=== PATIENT | female | born 1985 | race Caucasian/White ===

== ENCOUNTER 2017-03-01 15:30 | Emergency (ER) | payer SELFPAY ==
[2017-03-01 15:51] VITALS: BP 116/74; BMI 23.6
[2017-03-01] MEDS ORDERED: TORADOL 60 MG VIAL IM ONE (17:41)
--- NOTE | 2017-03-01 17:42 | DR.GENAD ---
HPI - PCP Primary Care Physician: stacie - HPI Comment HPI Comment: HEADACHE WORSE TODAY. NO FEVER. PATIENT HAVE HISTORY OF MIGRAINE HEADCHE. THIS HEAADACHE IS WORSE EVER. SLIGHT POST NASAL DRIP TODAY. NO TRAUMA. - Complaint/Symptoms Chief Complaint Doctors Comments: HEADACHE, PAIN RIGHT EAR AND RT JAW AND RIGHT SIDED WEAKNESS TIMES ONE DAY. Chief Complaint:: right side ear and jaw pain, right sided weakness, headache - Nurses notes reviewed Nurses Notes Review: Yes - Source History Provided: Patient - Mode of Arrival Mode of Arrival: Ambulatory - Timing Onset of Chief Complaint: 02/28/17 Came on: Suddenly - Duration Duration: Constant - Severity Severity: Moderate PMH - PMH Past Medical History: No Past Surgical History: Yes Surgical History: Appendectomy, - Family History History of Family Medical Conditions: No - Social History Does patient currently use any type of tobacco product: Yes Have you used tobacco products in the last 12 months: Yes Type of Tobacco Use: Cigarettes Does any household member use tobacco: No Alcohol Use: None Do you use any recreational Drugs:: No Lives With: Family Lives Where: Home - infectious screening In the last 2 months have you had wt loss of >10#?: NO Have you had fever, night sweats or hemotysis?: No Have you traveled outside the country in the last 6 months?: No Isolation: Standard ROS - Review of Systems Constitutional: Weakness (RT SIDED.) Eyes: No Symptoms Reported. negative: Eye Pain, Discharge ENTM: Ear Pain (RT), Nose Discharge. negative: Ear Discharge, Hearing Loss, Nose Pain Respiratoy: No Symptoms Reported. negative: Productive Cough, Non-Productive Cough, Short of Breath, Wheezing, Hemoptysis Cardiovascular: No Symptoms Reported. negative: Chest Pain Gastrointestinal/Abdominal: No Symptoms Reported. negative: Abdominal Pain, Diarrhea, Nausea, Vomiting Genitourinary: No Symptoms Reported. negative: Dysuria, Frequency, Hematuria Neurological: Headache, Weakness Musculoskeletal: Joint Pain, Muscle Pain Integumentary: No Symptoms Reported Hematologic/Lymphatic: No Symptoms Reported Endocrine: No Symptoms Reported All Other Systems: Reviewed and Negative PE - Vital Signs Vitals: Temperature 98.9 F Pulse Rate 85 Respiratory Rate 16 Blood Pressure 116/74 O2 Sat by Pulse Oximetry 98 - General Limitations: No Limitations General Appearance: Alert - Head Head Exam: Normal Inspection - Eyes Eye exam: Normal Appearance - ENT ENT Exam: Normal External Ear Exam External Ear Exam: Normal External Inspection TM/Canal Exam: Bilateral Normal Nose Exam: Normal Nose Exam Mouth Exam: Normal Inspection Throat Exam: Normal Inspection, Tonsillar Erythema - Neck Neck Exam: Normal Inspection - Chest Chest Inspection: Symmetric Chest Wall Rise - Respiratory Respiratory Exam: Normal Lung Sounds Bilat Respiratory Exam: Bilateral Clear to Auscultation - Cardiovascular Cardiovascular Exam: Regular Rate, Normal Rhythm, Normal Heart Sounds - Abdominal Exam Abdominal Exam: Normal Bowel Sounds, Soft. negative: Tenderness - Extremities Extremities Exam: Normal Inspection - Back Back Exam: Normal Inspection - Neurologic Neurological Exam: Alert, Oriented X3, CN II-XII Intact, Normal Gait, Reflexes Normal. negative: Motor Sensory Deficit - Psychiatric Psychiatric Exam: Anxious - Skin Skin Exam: Normal Color [facility] - Additional Information Additional Information Obtained From: Family - Differential Diagnosis Differential Diagnosis: HEADACHE, RIGHT SIDED WEAKNESS, CVA, SINUSIDED, MIGRAINE HEADCHE Course - Treatment Treatment: SEE ORDERS - Education/Counseling Education/Counseling: Patient, Family, Education Educated On: Diagnosis, Needs for Follow Up ROR - Labs Reviewed Result Diagrams: 03/01/17 17:45 03/01/17 17:45 Laboratory: WBC 9.2 X10^3/uL (3.6-10.0) 03/01/17 17:45 RBC 4.15 X10^6/uL (3.5-5.4) 03/01/17 17:45 Hgb 12.6 g/dL (12.0-16.0) 03/01/17 17:45 Hct 36.7 % (36.0-47.0) 03/01/17 17:45 MCV 88.5 fL (80.0-100.0) 03/01/17 17:45 MCH 30.4 pg (27.0-34.0) 03/01/17 17:45 MCHC 34.3 g/dL (33.0-35.0) 03/01/17 17:45 RDW 13.6 % (11.6-16.5) 03/01/17 17:45 Plt Count 347 X10^3/uL (150.0-450.0) 03/01/17 17:45 MPV 7.6 fL (7.4-11.0) 03/01/17 17:45 Neut % 57.9 % (42.0-75.0) 03/01/17 17:45 Lymph % 28.9 % (21.0-51.0) 03/01/17 17:45 [place] % 6.8 % (0.0-13.0) 03/01/17 17:45 Eos % 5.2 % (0.9-2.9) H 03/01/17 17:45 Baso % 1.2 % (0.2-1.0) H 03/01/17 17:45 Neut # 5.3 x10^3/uL (2.2-4.8) H 03/01/17 17:45 Lymph # 2.7 X10^3/uL (1.3-2.9) 03/01/17 17:45 [place] # 0.6 x10^3/uL (0.3-0.8) 03/01/17 17:45 Eos # 0.5 x10^3/uL (0.0-0.2) H 03/01/17 17:45 Baso # 0.1 X10^3/uL (0.0-0.1) 03/01/17 17:45 Absolute Nucleated RBC 0.0 /100WBC 03/01/17 17:45 Sodium 143 mmol/L (136-145) 03/01/17 17:45 Corrected Sodium TNP 03/01/17 17:45 Potassium 4.1 mmol/L (3.5-5.1) 03/01/17 17:45 Chloride 105 mmol/L (98-107) 03/01/17 17:45 Carbon Dioxide 27.8 mmol/L (21-32) 03/01/17 17:45 BUN 14 mg/dL (7-18) 03/01/17 17:45 Creatinine 0.79 mg/dL (0.55-1.02) 03/01/17 17:45 Est GFR (MDRD) Af Amer > 60 (>60) 03/01/17 17:45 Est GFR (MDRD) Non-Af > 60 (>60) 03/01/17 17:45 Glucose 102 mg/dL (65-99) H 03/01/17 17:45 Calcium 9.0 mg/dL (8.5-10.1) 03/01/17 17:45 Corrected Calcium TNP 03/01/17 17:45 Total Bilirubin 0.20 mg/dL (0.2-1.0) 03/01/17 17:45 AST 15 Units/L (15-37) 03/01/17 17:45 ALT 26 Units/L (12-78) 03/01/17 17:45 Alkaline Phosphatase 66 Units/L (46-116) 03/01/17 17:45 Total Protein 7.9 g/dL (6.4-8.2) 03/01/17 17:45 Albumin 3.9 g/dL (3.4-5.0) 03/01/17 17:45 Globulin 4.0 g/dL (2.5-4.5) 03/01/17 17:45 Albumin/Globulin Ratio 1.0 Ratio (1.1-2.1) L 03/01/17 17:45 Specimen Type Clean catch urine 03/01/17 17:25 Urine Color Yellow (YELLOW) 03/01/17 17:25 Urine Appearance Clear (CLEAR) 03/01/17 17:25 Urine pH 6.0 (5.0 - 8.0) 03/01/17 17:25 Ur Specific [place] 1.015 (1.000-1.030) 03/01/17 17:25 Urine Protein Negative (NEGATIVE) 03/01/17 17:25 Urine Glucose (UA) Negative (NEGATIVE) 03/01/17 17:25 Urine Ketones Negative (NEGATIVE) 03/01/17 17:25 Urine Occult Blood Negative (NEGATIVE) 03/01/17 17:25 Urine Nitrite Negative (NEGATIVE) 03/01/17 17:25 Urine Bilirubin Negative (NEGATIVE) 03/01/17 17:25 Urine Urobilinogen Normal (NORMAL) 03/01/17 17:25 Ur Leukocyte Esterase 1+ (NEGATIVE) 03/01/17 17:25 Urine RBC Negative /HPF (NEGATIVE) 03/01/17 17:25 Urine WBC 0 - 3 /HPF (NEGATIVE) 03/01/17 17:25 Ur Squamous Epith Cells Moderate /HPF (NEGATIVE) 03/01/17 17:25 Urine Bacteria Negative /HPF (NEGATIVE) 03/01/17 17:25 Ur Culture Indicated? No/not indicated 03/01/17 17:25 - Diagnosis Discharge Problem: Migraine headache, Right sided weakness - Discharge Plan Disposition: 01 HOME, SELF-CARE Condition: Stable Prescriptions: [id number] [Fioricet Tab] 1 tab PO Q8H PRN #30 tab PRN Reason: Migraine Headache - Follow ups/Referrals Follow ups/Referrals: CORBIN BREWER [Primary Care Provider] - 2 days MELANIE HUBBARD [STAFF PHYSICIAN] - 03/02/17 - Instructions Instructions: General Headache Without Cause, [id number], Weakness Additional Instructions: RETURN TO ED IF WORSE
[2017-03-01 17:50] LABS: BILIRUBIN,URINE NEGATIVE (NEGATIVE); BLOOD/HEMOGLOBIN,URINE NEGATIVE (NEGATIVE); GLUCOSE, URINE NEGATIVE (NEGATIVE); KETONES,URINE NEGATIVE (NEGATIVE); LEUKOCYTE ESTERASE ,URINE 1+ (NEGATIVE); NITRITES,URINE NEGATIVE (NEGATIVE); PROTEIN,URINE NEGATIVE (NEGATIVE); UROBILINOGEN,URINE NORMAL (NORMAL)
[2017-03-01 17:53] LABS: BASOPHILS # (AUTO) 0.1 X10^3/uL (0.0-0.1); BASOPHILS % (AUTO) 1.2 % (0.2-1.0); EOSINOPHILS # (AUTO) 0.5 x10^3/uL (0.0-0.2); EOSINOPHILS % (AUTO) 5.2 % (0.9-2.9); HEMATOCRIT 36.7 % (36.0-47.0); HEMOGLOBIN 12.6 g/dL (12.0-16.0); LYMPHOCYTES # (AUTO) 2.7 X10^3/uL (1.3-2.9); LYMPHOCYTES % (AUTO) 28.9 % (21.0-51.0); MEAN CORPUSCULAR HEMOGLOBIN 30.4 pg (27.0-34.0); MEAN CORPUSCULAR HGB CONC 34.3 g/dL (33.0-35.0); MEAN CORPUSCULAR VOLUME 88.5 fL (80.0-100.0); MEAN PLATELET VOLUME 7.6 fL (7.4-11.0); MONOCYTES # (AUTO) 0.6 x10^3/uL (0.3-0.8); MONOCYTES % (AUTO) 6.8 % (0.0-13.0); NEUTROPHILS # (AUTO) 5.3 x10^3/uL (2.2-4.8); NEUTROPHILS % (AUTO) 57.9 % (42.0-75.0); PLATELET COUNT 347 X10^3/uL (150.0-450.0); RED BLOOD COUNT 4.15 X10^6/uL (3.5-5.4); RED CELL DISTRIBUTION WIDTH 13.6 % (11.6-16.5); WHITE BLOOD COUNT 9.2 X10^3/uL (3.6-10.0)
[2017-03-01 18:00] LABS: COLOR,URINE YELLOW (YELLOW)
[2017-03-01 18:01] LABS: APPEARANCE,URINE CLEAR (CLEAR)
[2017-03-01 18:03] LABS: RBC,URINE NEGATIVE /HPF (NEGATIVE)
[2017-03-01 18:04] LABS: BACTERIA,URINE NEGATIVE /HPF (NEGATIVE); SQUAMOUS EPITHELIAL CELL,UR MODERATE /HPF (NEGATIVE)
[2017-03-01 18:06] LABS: ALANINE AMINOTRANSFERASE 26 Units/L (12-78); ALBUMIN 3.9 g/dL (3.4-5.0); ALKALINE PHOSPHATASE 66 Units/L (46-116); ASPARTATE AMINO TRANSFERASE 15 Units/L (15-37); BLOOD UREA NITROGEN 14 mg/dL (7-18); CARBON DIOXIDE 27.8 mmol/L (21-32); CHLORIDE 105 mmol/L (98-107); CREATININE 0.79 mg/dL (0.55-1.02); GLUCOSE 102 mg/dL (65-99); SODIUM 143 mmol/L (136-145); TOTAL PROTEIN 7.9 g/dL (6.4-8.2); eGFR BLACK RACES > 60 (>60); eGFR NON BLACK RACES > 60 (>60)
--- NOTE | 2017-03-01 18:10 | CT ---
STUDY: CT HEAD WITHOUT CONTRAST HISTORY: Headache for 3-4 days. TECHNIQUE: Multiple axial images of the head were obtained from the skull base to the vertex withou t administration of IV contrast. Automated exposure control (AEC) was utilized to adjust the MA and /or kV. COMPARISON: None. FINDINGS: The sulci, cisterns and ventricles are age appropriate. There is no evidence of acute ter ritorial infarction, hemorrhage, mass, mass effect, or midline shift. There are no abnormal intra-ax ial or extra-axial fluid collections. There is no evidence of acute osseous abnormality or significant soft tissue swelling. Visualized pa ranasal sinuses and mastoid air cells are predominately clear. IMPRESSION: 1. No evidence of acute intracranial abnormality. Reported By:
[2017-03-01] MEDS ORDERED: TORADOL 60 MG VIAL ONE (18:13)
== END 2017-03-01 19:13 | disposition home or self-care (01) ==
LOC: ER 16:05
DX: G43.009 Migraine without aura, not intractable, without status migrainosus (principal); R53.1 Weakness
CPT/HCPCS: 36415; 70450; 80053; 81001; 85025; 96372; 99283; J1885